=== PATIENT | female | born 1980 | race African-American/Black ===

== ENCOUNTER 2017-03-22 01:02 | Emergency (ER) | payer SELFPAY ==
[~2017-03-22] VITALS: Ht 162.6 cm; Wt 73.0 kg
[2017-03-22] MEDS ORDERED: KETOROLAC 60MG/2ML VIAL IM ONE (02:15)
[2017-03-22] MEDS ORDERED: IBUPROFEN 600MG TABLET PO ONE (02:30)
[2017-03-22 05:04] VITALS: BP 132/82
== END 2017-03-22 05:04 | disposition home or self-care (01) ==
LOC: ER 01:02
DX: S16.1XXA Strain of muscle, fascia and tendon at neck level, initial encounter (principal); S80.01XA Contusion of right knee, initial encounter; M25.512 Pain in left shoulder; Y92.410 Unspecified street and highway as the place of occurrence of the external cause
CPT/HCPCS: 72125; 73030; 73560; 99284